=== PATIENT | male | born 1965 | race Hispanic/Latino ===

== ENCOUNTER 2019-02-21 14:34 | Emergency (ER) | payer SELFPAY ==
[2019-02-21 14:56] LABS: Absolute Lymphocytes (CBC) 1.9 K/uL (0.7-4.9); Basophils % 0.7 % (0-1.3); Eosinophils % 0.4 % (0-4.4); Hematocrit 47.3 % (39.6-49.0); MPV 9.2 fL (7.6-11.3); Monocytes % 8.5 % (3.3-12.3); RBC Red Blood Cell Count 4.67 M/uL (4.33-5.43)
--- NOTE | 2019-02-21 15:04 | EKG ---
Test Date: 2019-02-21 Test Time: 14:52:52 Service Unit Operator: KARO/Sinan MEASUREMENT RESULTS: Intervals: Rate: 111 WI: 148 QRSD: 94 QT: 364 QTc: 495 [place]: P: 52 WI: 148 QRS: 92 T: 55 INTERPRETIVE STATEMENTS: Sinus tachycardia Rightward axis Borderline ECG No previous ECG available for comparison Electronically Signed On 02-21-19 15:04:01 CDT by Amanuel Alcaraz
[2019-02-21] MEDS ORDERED: NA CHLORIDE 0.9% 1,000 ML ONE (15:07)
--- NOTE | 2019-02-21 15:14 | RAD REPORT ---
EXAM DESCRIPTION: RAD - Chest Single View - 02/21/2019 3:04 pm CLINICAL HISTORY: syncope Chest pain. COMPARISON: <Comparisons> FINDINGS: Portable technique limits examination quality. The lungs are emphysematous but grossly clear. The heart is normal in size. No displaced fractures. IMPRESSION: No acute intrathoracic process suspected.
[2019-02-21 15:32] LABS: ALT/SGPT 92 U/L (12-78); AST/SGOT 124 U/L (15-37); Albumin 3.8 g/dL (3.4-5.0); Alkaline Phosphatase 108 U/L (45-117); BUN Blood Urea Nitrogen 12 mg/dL (7-18); Bicarbonate 28 mmol/L (21-32); Bilirubin Direct 0.5 mg/dL (0-0.2); Bilirubin Total 1.4 mg/dL (0.2-1.0); Creatine Phosphokinase 235 U/L (39-308); Glucose Level 120 mg/dL (74-106); Lipase 189 U/L (73-393); Protein, Total 7.3 g/dL (6.4-8.2); Sodium Level 133 mmol/L (136-145); Troponin (Emerg Dept Use Only) < 0.02 ng/mL (0.0-0.045)
[2019-02-21 15:34] LABS: Potassium 2.8 mmol/L (3.5-5.1)
[2019-02-21] MEDS ORDERED: KCL 20 MEQ/100 mL IVPB 20 MEQ/100 ML BAG IV ONE (15:52)
[2019-02-21] MEDS ORDERED: POTASSIUM CL SA 10 MEQ TAB PO ONE (15:52)
[2019-02-21] MEDS ORDERED: NA CHLORIDE 0.9% 500 ML ONE (15:52)
--- NOTE | 2019-02-21 15:57 | RAD REPORT ---
EXAM DESCRIPTION: CT - Head Brain Wo Cont - 02/21/2019 3:46 pm CLINICAL HISTORY: syncope/possible seizure Headache, drowsiness, seizure COMPARISON: <Comparisons> TECHNIQUE: All CT scans are performed using dose optimization technique as appropriate and may inclu de automated exposure control or mA/KV adjustment according to patient size. FINDINGS: No intracranial hemorrhage, hydrocephalus or extra-axial fluid collection.No areas of brai n edema or evidence of midline shift. The paranasal sinuses and mastoids are clear. The calvarium is intact. IMPRESSION: No acute intracranial abnormality.
--- NOTE | 2019-02-21 16:01 | RAD REPORT ---
EXAM DESCRIPTION: CTAbdomen Pelvis W Contrast - 02/21/2019 3:47 pm CLINICAL HISTORY: Abdominal pain. syncope;Abd pain COMPARISON: <Comparisons> TECHNIQUE: Biphasic CT imaging of the abdomen and pelvis was performed with 100 ml non-ionic IV cont rast. All CT scans are performed using dose optimization technique as appropriate and may include automated exposure control or mA/KV adjustment according to patient size. FINDINGS: The lung bases are clear. A diffuse fatty liver infiltration pattern is seen. A small hiatal hernia is present. The spleen, [place], adrenal glands and kidneys are within normal limits. No bowel obstruction, free air, free fluid or abscess. The appendix is normal. No evidence of signi ficant lymphadenopathy. No suspicious bony findings. IMPRESSION: No acute intra-abdominal or pelvic finding. Advanced fatty liver.
--- NOTE | 2019-02-21 17:41 | ER ---
Nurse's Notes [facility] Name: Candido Swain Age: 53 yrs Sex: Male : 1965 Arrival Date: 02/21/2019 Time: 14:28 Bed 14 Private MD: Diagnosis: Heat exhaustion, unspecified;Dehydration;Syncope and collapse Presentation: 02/21 14:28 Presenting complaint: Patient states: Patient was working outside when he had a aj syncopal episode and began convulsing. EMS reports that bystanders stated patient was convulsing for 3 minutes. Patient was awake and alert on scene and upon arrival to ED. Transition of care: patient was not received from another setting of care. Onset of symptoms was February 21, 2019. Risk Assessment: Do you want to hurt yourself or someone else? Patient reports no desire to harm self or others. Initial Sepsis Screen: Does the patient meet any 2 criteria? No. Patient's initial sepsis screen is negative. Does the patient have a suspected source of infection? No. Patient's initial sepsis screen is negative. Care prior to arrival: Medication(s) given: Normal saline infusion, 1000 mL, zofran 4 mg, IV initiated. 20 GA, in the left antecubital area. 14:28 Method Of Arrival: EMS: [facility] 14:28 Acuity: DANY 3 aj Triage Assessment: 14:32 General: Appears in no apparent distress. comfortable, Behavior is calm, cooperative, aj appropriate for age. Pain: Complains of pain in epigastric area. Neuro: Level of Consciousness is awake, alert, obeys commands, Oriented to person, place, time, situation, Appropriate for age. Respiratory: Airway is patent Respiratory effort is even, unlabored, Respiratory pattern is regular, symmetrical. GI: Reports upper abdominal pain, nausea. Derm: Skin is intact, is healthy with good turgor, Skin is pink, warm \T\ dry. normal. Historical: - Allergies: 14:32 No Known Allergies; aj - Immunization history:: Adult Immunizations up to date. - Social history:: Smoking status: Patient/guardian denies using tobacco. - Ebola Screening: : Patient negative for fever greater than or equal to 101.5 degrees Fahrenheit, and additional compatible Ebola Virus Disease symptoms Patient denies exposure to infectious person Patient denies travel to an Ebola-affected area in the 21 days before illness onset No symptoms or risks identified at this time. - Family history:: not pertinent. - Hospitalizations: : No recent hospitalization is reported. Screenin:07 Abuse screen: Denies threats or abuse. Denies injuries from another. Nutritional aj screening: No deficits noted. Tuberculosis screening: No symptoms or risk factors identified. Fall Risk None identified. Assessment: 15:06 Reassessment: Patient appears in no apparent distress at this time. No changes from aj previously documented assessment. Patient and/or family updated on plan of care and expected duration. Pain level reassessed. Patient is alert, oriented x 3, equal unlabored respirations, skin warm/dry/pink. Patient states feeling better. Patient states symptoms have improved. 16:16 Reassessment: Patient appears in no apparent distress at this time. No changes from aj previously documented assessment. Patient and/or family updated on plan of care and expected duration. Pain level reassessed. Patient is alert, oriented x 3, equal unlabored respirations, skin warm/dry/pink. Patient states feeling better. Patient states symptoms have improved. Vital Signs: 14:32 BP 146 / 98; Pulse 117; Resp 20; Temp 99.1; Pulse Ox 93% on R/A; Weight 74.84 kg; aj Height 5 ft. 5 in. (165.10 cm); 15:06 BP 135 / 89; Pulse 106; Resp 19; Pulse Ox 96% on R/A; aj 16:16 BP 151 / 101; Pulse 103; Resp 16; Pulse Ox 98% on R/A; aj 18:03 BP 137 / 89; Pulse 88; Resp 16; Pulse Ox 100% on R/A; aj 14:32 Body Mass Index 27.46 (74.84 kg, 165.10 cm) aj ED Course: 14:28 Patient arrived in ED. aj 14:28 Niko Pederson MD is Attending Physician. rn 14:30 Maintain EMS IV. Dressing intact. Good blood return noted. Site clean \T\ dry. Gauge \T\ aj site: 20 to left AC. 14:31 Triage completed. aj 14:32 Arm band placed on right wrist. Patient placed in an exam room, on a stretcher, on aj monitor car operator, on pulse oximetry. 14:36 Maricarmen Kaminski, RN is Primary Nurse. aj 14:42 Radiology exam delayed due to lab results not completed at this time. (BUN/Creatinine). jg6 14:55 EKG done, by pearl technician. reviewed by Niko Pederson MD. dt2 15:05 CXR XRAY In Process Unspecified. EDMS 15:07 Patient has correct armband on for positive identification. aj 15:08 Radiology exam delayed due to lab results not completed at this time. (BUN/Creatinine). vm2 15:30 Radiology exam delayed due to lab results not completed at this time. (BUN/Creatinine). vm2 15:48 CT Head Brain wo Cont In Process Unspecified. EDMS 15:48 CT Abd/Pelvis - IV Contrast Only In Process Unspecified. EDMS 18:03 No provider procedures requiring assistance completed. IV discontinued, intact, aj bleeding controlled, No redness/swelling at site. Pressure dressing applied. Administered Medications: 14:36 Drug: NS 0.9% 1000 ml Route: IV; Rate: 1000 ml; Site: left antecubital; aj 18:05 Follow up: Response: No adverse reaction; IV Status: Completed infusion; IV Intake: aj 1000ml 15:09 Drug: NS 0.9% 1000 ml Route: IV; Rate: 1 bolus; Site: left antecubital; aj 18:06 Follow up: Response: No adverse reaction; IV Status: Completed infusion; IV Intake: aj 1000ml 15:40 Drug: Potassium Chloride 40 mEq Route: PO; aj 18:07 Follow up: Response: No adverse reaction aj 15:57 Drug: Potassium Chloride 20 mEq Route: IV; Rate: calculated rate; Site: left aj antecubital; 18:06 Follow up: IV Status: Completed infusion; IV Intake: 100ml aj 15:57 Drug: NS 0.9% 500 ml Route: IV; Rate: 125 ml/hr; Site: left antecubital; aj 18:07 Follow up: Response: No adverse reaction; IV Status: Order to discontinue infusion; IV aj Intake: 250ml Intake: 18:05 IV: 1000ml; Total: 1000ml. aj 18:06 IV: 1000ml; Total: 2000ml. aj 18:06 IV: 100ml; Total: 2100ml. aj 18:07 IV: 250ml; Total: 2350ml. aj Outcome: 17:40 Discharge ordered by . rn 18:03 Discharged to home ambulatory. aj 18:03 Condition: good 18:03 Discharge instructions given to patient, Instructed on discharge instructions, follow up and referral plans. Demonstrated understanding of instructions, follow-up care. 18:08 Patient left the ED. samy Signatures: Dispatcher [employer] Maricarmen Ospina RN RN aj Nieto, Roman, MD MD rn McGuire, Victoria 2 Zoila Carbajal 2 Monica [id number]
--- NOTE | 2019-02-21 17:41 | EDPHYS ---
Physician Documentation [facility] Name: Candido Swain Age: 53 yrs Sex: Male : 1965 Arrival Date: 02/21/2019 Time: 14:28 Bed 14 Private MD: ED Physician Niko Pederson HPI: 02/21 14:40 This 53 yrs old Male presents to ER via EMS with complaints of Heat Exposure. rn 14:40 The patient has experienced syncope. Onset: The symptoms/episode began/occurred just rn prior to arrival. Duration: This was a single episode. Associated injury: The patient did not suffer any apparent associated injury. Current symptoms: Currently, the patient is not experiencing any symptoms. The patient has not experienced similar symptoms in the past. Per EMS, at work, had not eaten or drinking water today, was standing and had syncopal episode, single, bystanders reported some shaking episode after, lasting approx 3 min. No injury from syncope. Reports mid abd pain that is intermittent. . Historical: - Allergies: 14:32 No Known Allergies; aj - Immunization history:: Adult Immunizations up to date. - Social history:: Smoking status: Patient/guardian denies using tobacco. - Ebola Screening: : Patient negative for fever greater than or equal to 101.5 degrees Fahrenheit, and additional compatible Ebola Virus Disease symptoms Patient denies exposure to infectious person Patient denies travel to an Ebola-affected area in the 21 days before illness onset No symptoms or risks identified at this time. - Family history:: not pertinent. - Hospitalizations: : No recent hospitalization is reported. ROS: 14:40 Constitutional: Negative for fever, chills, and weight loss, Eyes: Negative for injury, rn pain, redness, and discharge, Neck: Negative for injury, pain, and swelling, Cardiovascular: Negative for chest pain, palpitations, and edema, Respiratory: Negative for shortness of breath, cough, wheezing, and pleuritic chest pain, Abdomen/GI: Negative for nausea, vomiting, diarrhea, and constipation, MS/Extremity: Negative for injury and deformity, Skin: Negative for injury, rash, and discoloration, Neuro: Negative for headache, numbness, tingling, and seizure. Exam: 14:40 Constitutional: This is a well developed, well nourished patient who is awake, alert, rn and in no acute distress. Head/Face: Normocephalic, atraumatic. Eyes: Pupils equal round and reactive to light, extra-ocular motions intact. Lids and lashes normal. Conjunctiva and sclera are non-icteric and not injected. Cornea within normal limits. Periorbital areas with no swelling, redness, or edema. ENT: dry MM Neck: Trachea midline, no thyromegaly or masses palpated, and no cervical lymphadenopathy. Supple, full range of motion without nuchal rigidity, or vertebral point tenderness. No Meningismus. Cardiovascular: tachycardic, regular, no murmur Respiratory: mild tachypnea, no retractions, diminished at bases. Abdomen/GI: soft, mild periumbilical tenderness, no rebound/masses MS/ Extremity: Pulses equal, no cyanosis. Neurovascular intact. Full, normal range of motion. Equal circumference. Neuro: Awake and alert, GCS 15, oriented to person, place, time, and situation. Cranial nerves II-XII grossly intact. Motor strength 5/5 in all extremities. Sensory grossly intact. Cerebellar exam normal. Vital Signs: 14:32 BP 146 / 98; Pulse 117; Resp 20; Temp 99.1; Pulse Ox 93% on R/A; Weight 74.84 kg; aj Height 5 ft. 5 in. (165.10 cm); 15:06 BP 135 / 89; Pulse 106; Resp 19; Pulse Ox 96% on R/A; aj 16:16 BP 151 / 101; Pulse 103; Resp 16; Pulse Ox 98% on R/A; aj 18:03 BP 137 / 89; Pulse 88; Resp 16; Pulse Ox 100% on R/A; aj 14:32 Body Mass Index 27.46 (74.84 kg, 165.10 cm) aj MDM: 14:28 Patient medically screened. rn 17:39 Differential Diagnosis: cardiac arrhythmia, vasovagal episode, heat related illness, rn heat exhaustion, dehydration, hypokalemia.. Differential Diagnosis: aortic aneurysm. Data reviewed: vital signs, nurses notes. Counseling: I had a detailed discussion with the patient and/or guardian regarding: the historical points, exam findings, and any diagnostic results supporting the discharge/admit diagnosis, lab results, radiology results, the need for outpatient follow up, to return to the emergency department if symptoms worsen or persist or if there are any questions or concerns that arise at home. Response to treatment: the patient's symptoms have markedly improved after treatment, the patient's condition has returned to base line, the patient is now symptom free, patient is well hydrated. and as a result, I will discharge patient. Special discussion: I discussed with the patient/guardian in detail that at this point there is no indication for admission to the hospital. It is understood, however, that if the symptoms persist or worsen the patient needs to return immediately for re-evaluation. 02/21 14:32 Order name: CBC with Diff; Complete Time: 15:33 02/21 14:32 Order name: Basic Metabolic Panel; Complete Time: 15:51 02/21 14:32 Order name: Troponin (emerg Dept Use Only); Complete Time: 15:51 02/21 14:32 Order name: CK; Complete Time: 15:51 02/21 14:32 Order name: LFT's; Complete Time: 15:51 02/21 14:32 Order name: Lipase; Complete Time: 15:51 02/21 14:32 Order name: CT Head Brain wo Cont; Complete Time: 16:17 02/21 14:32 Order name: CT Abd/Pelvis - IV Contrast Only; Complete Time: 16:17 02/21 14:42 Order name: CXR XRAY; Complete Time: 15:33 02/21 14:32 Order name: IV Start; Complete Time: 14:36 02/21 14:32 Order name: EKG; Complete Time: 14:42 02/21 14:32 Order name: EKG - Nurse/Tech; Complete Time: 16:27 rn Administered Medications: 14:36 Drug: NS 0.9% 1000 ml Route: IV; Rate: 1000 ml; Site: left antecubital; aj 18:05 Follow up: Response: No adverse reaction; IV Status: Completed infusion; IV Intake: aj 1000ml 15:09 Drug: NS 0.9% 1000 ml Route: IV; Rate: 1 bolus; Site: left antecubital; aj 18:06 Follow up: Response: No adverse reaction; IV Status: Completed infusion; IV Intake: aj 1000ml 15:40 Drug: Potassium Chloride 40 mEq Route: PO; aj 18:07 Follow up: Response: No adverse reaction aj 15:57 Drug: Potassium Chloride 20 mEq Route: IV; Rate: calculated rate; Site: left antecubital; 18:06 Follow up: IV Status: Completed infusion; IV Intake: 100ml 15:57 Drug: NS 0.9% 500 ml Route: IV; Rate: 125 ml/hr; Site: left antecubital; 18:07 Follow up: Response: No adverse reaction; IV Status: Order to discontinue infusion; IV aj Intake: 250ml Disposition: 02/21/19 17:40 Discharged to Home. Impression: Heat exhaustion, unspecified, Dehydration, Syncope and collapse. - Condition is Stable. - Discharge Instructions: Dehydration, Adult, Syncope, Heat Exhaustion Information. - Medication Reconciliation Form, Thank You Letter, Antibiotic Education, Prescription Opioid Use form. - Follow up: Private Physician; When: As needed; Reason: Recheck today's complaints, Re-evaluation by your physician. - Problem is new. - Symptoms have improved. Signatures: Dispatcher [employer] EDMaricarmen Salinas RN RN aj Nieto, Roman, MD MD broomcorn seeder: (The following items were deleted from the chart) 18:08 17:40 02/21/2019 17:40 Discharged to Home. Impression: Heat exhaustion, unspecified; aj Dehydration; Syncope and collapse. Condition is Stable. Forms are Medication Reconciliation Form, Thank You Letter, Antibiotic Education, Prescription Opioid Use. Follow up: Private Physician; When: As needed; Reason: Recheck today's complaints, Re-evaluation by your physician. Problem is new. Symptoms have improved. rn
== END 2019-02-21 18:08 | disposition home or self-care (01) ==
LOC: ER 14:34
DX: E86.0 Dehydration (principal); T67.5XXA Heat exhaustion, unspecified, initial encounter; X30.XXXA Exposure to excessive natural heat, initial encounter; Y93.89 Activity, other specified; Y92.9 Unspecified place or not applicable
CPT/HCPCS: 36415; 70450; 71045; 74177; 80048; 80076; 82550; 83690; 84484; 85025; 93005; J7030; Q9967